=== PATIENT | female | born 2000 | race Two or more races ===

== ENCOUNTER 2024-07-04 03:42 | Emergency (ER) | payer BC, SELFPAY ==
[2024-07-04 03:43] VITALS: BMI 44.6
[2024-07-04 03:52] VITALS: BP 148/94; PULSE 98; RESP 19; TEMP 36.8; O2SAT 99
--- NOTE | 2024-07-04 03:57 | EDNOTE_ITS ---
ED Ear RME/HPI General Chief complaint: Ear Stated complaint: LEFT EAR PAIN, WATER SUCK IN EAR Time Seen by Provider: 07/04/24 03:54 Arrival date/time: 07/04/24 03:42 24F with no significant PMH presents to ED with 1 day of L ear pain. Patient recently had URI symptoms such as nasal congestion, but has gotten over it. Limitations: no limitations Related Data Previous Rx's ?Medication ?Instructions ?Recorded amoxicillin 875 mg tablet 875 mg PO BID 5 days #10 tabs 07/04/24 Allergies Allergy/AdvReac Type Severity Reaction Status Date / Time No Known Allergies Allergy Verified 07/04/24 03:44 Review of Systems Review of Systems Systems Reviewed: All systems reviewed, normal except as documented Constitutional Constitutional: Reports system reviewed and no additional complaints, except as documented, Denies fever(s) and Denies headache(s) ENT Ears, Nose, Mouth, and Throat: Reports as per HPI, Denies disequilibrium, Reports otalgia and Denies headache(s) Cardiovascular Cardiovascular: Reports system reviewed and no additional complaints, except as documented, Denies chest pain and Denies dyspnea Respiratory Respiratory: Reports system reviewed and no additional complaints, except as documented, Denies cough and Denies dyspnea Gastrointestinal Gastrointestinal: Reports system reviewed and no additional complaints, except as documented, Denies abdominal pain, Denies nausea and Denies vomiting Neurologic Neurologic: Reports system reviewed and no additional complaints, except as documented, Denies confusion, Denies disequilibrium and Denies headache(s) Psychiatric Psychiatric: Denies confusion Past Medical History Social History SMOKING STATUS: Never smoker ED Exam General Limitations: Present no limitations General appearance: Present alert and in no apparent distress Head Head exam: Present atraumatic Eye Eye exam: Present normal appearance, PERRL and EOMI ENT ENT exam: Present normal oropharynx and mucous membranes moist Expanded ENT Exam TM/Canal exam: Left TM: effusion and Bilateral TM: erythema and bulging Neck Neck exam: Present normal inspection, full ROM and trachea midline Chest Chest inspection: Present normal inspection and symmetric chest wall rise Respiratory Respiratory exam: Present normal lung sounds bilaterally Cardiovascular Cardiovascular exam: Present regular rate, normal rhythm and normal heart sounds Abdominal Exam Abdominal exam: Present soft and normal bowel sounds Extremities Exam Extremities exam: Present normal inspection and full ROM Back Exam Back exam: Present normal inspection and full ROM Neurological Exam Neurological exam: Present alert, oriented X3 and CN II-XII intact Psychiatric Psychiatric exam: Present normal affect and normal mood Skin Skin exam: Present warm, dry, intact and normal color Course Quality Measures none Vital Signs Vital signs: Vital Signs Temperature 98.3 F 07/04/24 03:52 Pulse Rate 98 07/04/24 03:52 Respiratory Rate 19 07/04/24 03:52 Blood Pressure 148/94 H 07/04/24 03:52 Pulse Oximetry (%) 99 07/04/24 03:52 Oxygen Delivery Method Room Air 07/04/24 03:52 O2 at 99% on RA and WNLs Ear MDM Narrative MDM Narrative:: 24F with no significant PMH presents to ED with 1 day of L ear pain. Patient recently had URI symptoms such as nasal congestion, but has gotten over it. Physical exam reveals bilateral red and bulging TM (L>R) with fluid level behind L TM. Patient is afebrile, calm, and alert. Likely OM. Patient data External records reviewed:: None Clinical information provided by:: patient Social determinants that could affect healthcare access:: none Patient has the following chronic illnesses:: none How is presenting disease/condition affected by chronic disease/condition?: no chronic disease Evaluation data The following diagnostics were reviewed and interpreted by me:: other (specify) (none) Lab and/or radiology exams considered but not ordered:: not ordered Interpretation Summary: n/a Medications / Prescriptions Medications or Prescriptions considered but not ordered:: not ordered Medication administrations:: n/a Consultations Consultation(s) initiated? (list below): No Diagnosis Ear Differential Diagnosis: otitis externa, otitis media, foreign body in ear, ruptured TM and cerumen impaction Most likely diagnosis given after review of the tests above:: OM Admission Indicated Admission indicated?: not indicated Admission Request Was there a request for admission?: No Disposition Plan Disposition Plan: Discharge Discharge Attestation Discharge Attestation: The patient and all family members were given an opportunity to ask questions and understood the discharge instructions. Discharge instructions specifically effects, indications for sooner follow up or return to the emergency department, and the expected course of current diagnosis. Patient condition: Stable Discharge Plan Plan Patient Disposition: HOME (Self Care) Disposition Comment: Stable Prescriptions/Referrals Prescriptions/Med Rec: New amoxicillin 875 mg tablet 875 mg PO BID 5 Days Qty: 10 0RF Problem List Clinical Impression: Otitis media Patient/Caregiver Discharge Instructions Education Materials: ED Otitis Media Antibiotic ... Additional Instructions: Please follow-up with PCP within 24-48 hours and return immediately if symptoms worsen. Print Language: Ukrainian Stand Alone Forms: Patient Portal Info Letter SANGEETHA/ALLY Supervising Physician SANGEETHA/ALLY Supervising Physician: Dr. Smith
== END 2024-07-04 04:03 | disposition home or self-care (01) ==
LOC: SERX 04:06
PROVIDERS: Emergency Provider Emergency Medicine
DX: H66.92 Otitis media, unspecified, left ear (principal)
CPT/HCPCS: 99281